=== PATIENT | female | born 2000 ===

== ENCOUNTER 2022-02-04 20:15 | Emergency (ER) | payer MEDICAID ==
[2022-02-04 21:03] VITALS: BP 143/73
[2022-02-04 21:32] LABS: Basophils # (Auto) 0.1 K/mm3 (0.0-0.1); Basophils % (Auto) 0.7 % (0.0-1.8); Eosinophils # (Auto) 0.1 K/mm3 (0.0-0.4); Hematocrit 41.9 % (30.3-42.9); Hemoglobin 14.5 gm/dl (10.1-14.3); Lymphocytes # (Auto) 1.9 K/mm3 (1.2-5.4); Lymphocytes % (Auto) 22.5 % (13.4-35.0); Mean Corpuscular HGB Conc 35 % (30-34); Mean Corpuscular Volume 88 fl (79-97); Monocytes # (Auto) 0.7 K/mm3 (0.0-0.8); Monocytes % (Auto) 8.8 % (0.0-7.3); Platelet Count 367 K/mm3 (140-440); Red Blood Count 4.75 M/mm3 (3.65-5.03); Red Cell Distribution Width 14.4 % (13.2-15.2)
[2022-02-04 21:56] LABS: Alanine Aminotransferase 44 units/L (7-56); Albumin 4.5 g/dL (3.9-5); Blood Urea Nitrogen 8 mg/dL (7-17); Calcium 9.4 mg/dL (8.4-10.2); Hemolysis Index 77
[2022-02-04 22:08] LABS: BUN/Creatinine Ratio 20
--- NOTE | 2022-02-04 23:43 | Emergency Department Report ---
ED HPI - General Chief complaint: Vaginal Bleeding Stated complaint: BLEEDING W/PREG Time Seen by Provider: 02/04/22 23:26 Source: patient Mode of arrival: Ambulatory Limitations: No Limitations - History of Present Illness Initial comments: 21-year-old female who is currently about 6 weeks presents to the ER today for abnormal vaginal bleeding. Patient states that when she wiped after urinating this morning she noticed small amount of bright red blood on the tissue. She has not had to use a pad, tampon or panty liner. She denies any abdominal cramping. She denies any UTI symptoms. Her last menstrual cycle was December 20. Her last visit with [facility] was last Sunday during which time she had an ultrasound at the office which showed 6-week viable IUP with a heartbeat. Patient states that she has not had any recent sexual activity or heavy strenuous lifting or any injury to her abdomen. She is G1, P0 Ab0. Complaint: vaginal bleeding -: This afternoon - Related Data Previous Rx's Medication Instructions Recorded Last Taken Type cephALEXin [Keflex] 500 mg PO Q8HR #21 cap 02/05/22 Unknown Rx Allergies Allergy/AdvReac Type Severity Reaction Status Date / Time No Known Allergies Allergy Verified 02/04/22 21:07 ED Review of Systems ROS: Stated complaint: BLEEDING W/PREG Other details as noted in HPI Comment: All other systems reviewed and negative Constitutional: denies: chills, fever Eyes: denies: eye pain, eye discharge, vision change ENT: denies: ear pain, throat pain Respiratory: denies: cough, shortness of breath, SOB with exertion, SOB at rest, wheezing Cardiovascular: denies: chest pain, palpitations Gastrointestinal: denies: abdominal pain, nausea, diarrhea, constipation, hematemesis, hematochezia Genitourinary: denies: urgency, dysuria, frequency, hematuria, discharge, abnormal menses, dyspareunia Musculoskeletal: denies: back pain, joint swelling, arthralgia Skin: denies: rash, lesions, change in color, change in hair/nails, pruritus Neurological: denies: headache, weakness, numbness, paresthesias, confusion, abnormal gait, vertigo Psychiatric: denies: anxiety, depression, auditory hallucinations, visual hallu cinations, homicidal thoughts, suicidal thoughts Hematological/Lymphatic: denies: easy bleeding, easy bruising, swollen glands ED Past Medical Hx - Medications Home Medications: Home Medications Medication Instructions Recorded Confirmed Last Taken Type cephALEXin [Keflex] 500 mg PO Q8HR #21 cap 02/05/22 Unknown Rx ED Physical Exam - General Limitations: No Limitations General appearance: alert, in no apparent distress - Head Head exam: Present: atraumatic, normocephalic, normal inspection - Eye Eye exam: Present: normal appearance, PERRL, EOMI Pupils: Present: normal accommodation - ENT ENT exam: Present: mucous membranes moist - Neck Neck exam: Present: normal inspection, full ROM. Absent: meningismus - Respiratory Respiratory exam: Present: normal lung sounds bilaterally. Absent: respiratory distress, wheezes, rales, rhonchi - Cardiovascular Cardiovascular Exam: Present: regular rate, normal rhythm, normal heart sounds - GI/Abdominal GI/Abdominal exam: Present: soft. Absent: distended, tenderness, guarding, rebound, rigid - Neurological Exam Neurological exam: Present: alert, oriented X3, CN II-XII intact, normal gait - Psychiatric Psychiatric exam: Present: normal affect, normal mood - Skin Skin exam: Present: intact ED Course Vital Signs 02/04/22 02/05/22 20:54 01:46 Temperature 98.3 F Pulse Rate 84 82 Respiratory 16 20 Rate Blood Pressure 143/73 O2 Sat by Pulse 100 100 Oximetry ED Medical Decision Making - Lab Data Result diagrams: 02/04/22 21:15 02/04/22 21:15 - Radiology Data Radiology results: report reviewed Patient: LENORE HOOVER MR#: [id number] : 2000 Acct:[id number] Age/Sex: 21 / F ADM Date: 02/04/22 Loc: ED Attending Dr: Ordering Physician: MAHAD HOLDEN Date of Service: 02/04/22 Procedure(s): US OB transvaginal Accession Number(s): [id number] cc: MAHAD HOLDEN ULTRASOUND OBSTETRIC , 1ST TRIMESTER INDICATION / CLINICAL INFORMATION: 6 weeks gest/vag bleeding. Clinical Gestational Age (GA) in weeks, days: Approximately 7 weeks TECHNIQUE: . Transvaginal COMPARISON: None available. FINDINGS: GESTATIONAL SAC: Well-defined oval shape and intrauterine in location. YOLK SAC: No significant abnormality. EMBRYO/FETUS: No significant abnormality. - [place]-Rump Length = 1.2 cm = 7 weeks, 1 days - Heart Rate, beats per minute (if present) = 131 ADNEXA: The ovaries are well-visualized and have a normal sonographic appearance. No adnexal mass or free fluid. Doppler evaluation shows bilateral ovarian blood flow. FREE FLUID: None. ADDITIONAL FINDINGS: None. IMPRESSION: 1. Single, living intrauterine with estimated sonographic age of 7 weeks, 3 days. Signer Name: Angelika Roger MD Signed: 02/05/2022 1:05 AM Workstation Name: [id number] Transcribed By: Dictated By: Angelika Roger MD Electronically Authenticated By: Angelika Roger MD Signed Date/Time: 02/05/22104 DD/ 2 TD/TT: - Medical Decision Making Labs reviewed --CBC and CMP shows no significant abnormality. Patient ED Rh is O+ and therefore no indication for RhoGam at this time. Her urine is concerning for UTI and yeast infection. OB ultrasound showed single live IUP measuring 7 weeks and 1 day without any acute complications or abnormalities. Patient currently resting in the room. She is not in any acute distress. She is not toxic or ill-appearing. She appears well-hydrated. Abdominal exam was benign. Discussed results with patient. Discussed suspected diagnosis with patient. She will be started on antibiotics for UTI and she was instructed to do Monistat [id number] for yeast infection. She was instructed to call and follow-up with her [facility] next week. Patient expressed understanding for instructions and agree with plan. Patient was stable at time of discharge. Critical care attestation.: If time is entered above; I have spent that time in minutes in the direct care of this critically ill patient, excluding procedure time. ED Disposition Clinical Impression: Threatened miscarriage in early , UTI (urinary tract infection), Yeast infection Disposition: HOME / SELF CARE / HOMELESS Is pt being admited?: No Does the pt Need Aspirin: No Condition: Stable Instructions: Urinary Tract Infection, Adult, [id number], Threatened Miscarriage, [id number] Additional Instructions: I recommend that you call your [facility] to see if he can get a sooner appointment on February 27 for follow-up of your vaginal bleeding if it continues. Recommend no strenuous activity or sexual intercourse until cleared by OB. Your urinalysis today shows yeast infection and a UTI. Start taking the Keflex as prescribed. Recommend that you start using the 7-day [id number] Monistat for the yeast infection. Return to the ER if your symptoms changes or worsens in any way. Prescriptions: cephALEXin [Keflex] 500 mg PO Q8HR #21 cap Referrals: PRIMARY CARE, [Referring] - 3-5 Days Time of Disposition: 01:27
[2022-02-05 00:47] LABS: Bacteria,Urine 1+ /HPF (Negative); Bilirubin,Urine NEG (Negative); Blood,Urine LG (Negative); Color,Urine Yellow (Yellow); Mucus,Urine FEW /HPF; Protein,Urine <15 mg/dL mg/dL (Negative); Urobilinogen,Urine < 2.0 mg/dL (<2.0)
--- NOTE | 2022-02-05 01:09 | Ultrasound Report ---
ULTRASOUND OBSTETRIC , 1ST TRIMESTER INDICATION / CLINICAL INFORMATION: 6 weeks gest/vag bleeding. Clinical Gestational Age (GA) in weeks, days: Approximately 7 weeks TECHNIQUE: . Transvaginal COMPARISON: None available. FINDINGS: GESTATIONAL SAC: Well-defined oval shape and intrauterine in location. YOLK SAC: No significant abnormality. EMBRYO/FETUS: No significant abnormality. - [place]-Rump Length = 1.2 cm = 7 weeks, 1 days - Heart Rate, beats per minute (if present) = 131 ADNEXA: The ovaries are well-visualized and have a normal sonographic appearance. No adnexal mass or free fluid. Doppler evaluation shows bilateral ovarian blood flow. FREE FLUID: None. ADDITIONAL FINDINGS: None. IMPRESSION: 1. Single, living intrauterine with estimated sonographic age of 7 weeks, 3 days. Signer Name: Angelika Roger MD Signed: 02/05/2022 1:05 AM Workstation Name: [id number]
== END 2022-02-05 01:46 | disposition home or self-care (01) ==
LOC: ED 20:15
DX: O20.0 Threatened abortion (principal); N39.0 Urinary tract infection, site not specified; B37.9 Candidiasis, unspecified
CPT/HCPCS: 36415; 76817; 80053; 81001; 84702; 85025; 86900; 86901; 87086; 99284